=== PATIENT | female | born 1955 | race Caucasian/White ===

== ENCOUNTER 2019-06-05 | Emergency (ER) | payer BC ==
[2019-06-05 23:14] LABS: HEMATOCRIT 42.3 % (37.0-47.0); HEMOGLOBIN 13.8 g/dl (12.0-16.0); IMMATURE GRANULOCYTES 0.2 % (0.0-5.0); MEAN CELL VOLUME 91.6 fL CALC (80.0-100.0); MEAN CORPUSCULAR HGB 29.9 pG CALC (26.0-32.0); MEAN CORPUSCULAR HGB CONC 32.6 g/L CALC (32.0-36.0); NEUT# 1.87 thou/uL (2.00-7.15); RED BLOOD COUNT 4.62 mill/uL (4.20-5.60); RED CELL DISTRI WIDTH 12.5 % (11.5-15.5)
[2019-06-05 23:26] LABS: ALBUMIN 4.9 g/dL (3.2-5.0); ALKALINE PHOSPHATASE 64 u/l (38-126); ANION GAP 13 (6-22 (CALC)); BILIRUBIN, TOTAL 0.4 mg/dL (0.0-1.4); BUN 19 mg/dL (8-23); BUN/CREATININE RATIO 33 (12-20 (CALC)); CARBON DIOXIDE 27 mmol/l (22-30); CHLORIDE 103 mmol/l (95-108); CREATININE 0.6 mg/dL (0.5-1.0); GFR > 60 ML/MIN (>=60 (CALC)); GFR FOR AFR.AMER. > 60 ML/MIN (>=60 (CALC)); POTASSIUM 4.4 mmol/l (3.5-5.1); SGOT/AST 35 u/l (9-36); SODIUM 139 mmol/l (137-146)
[2019-06-05] MEDS ORDERED: FLUDROCORTISON0.1 MG PO (23:35)
[2019-06-05] MEDS ORDERED: PROZAC20 MG PO (23:35)
[2019-06-05] MEDS ORDERED: PROVIGIL200 MG PO (23:36)
[2019-06-05] MEDS ORDERED: CEPHALEXIN500 MG PO (23:45)
[2019-06-05] MEDS ORDERED: ROBITUSSIN AC10 ML PO (23:45)
== END 2019-06-06 00:40 | disposition home or self-care (01) | DRG 153 ==
PROVIDERS: Emergency Medicine
DX: J06.9 Acute upper respiratory infection, unspecified (principal)

== ENCOUNTER 2019-06-22 | Emergency (ER) | payer BC ==
[~2019-06-22] MED LIST: CEPHALEXIN500 MG PO; FLUDROCORTISON0.1 MG PO; PROVIGIL200 MG PO; PROZAC20 MG PO; ROBITUSSIN AC10 ML PO
[2019-06-22] MEDS ORDERED: TESSALON PER100 MG PO (16:59)
[2019-06-22] MEDS ORDERED: XOPENEX CO1.25 MG/0. NEB (16:59)
[2019-06-22] MEDS ORDERED: AZITHROMYCIN500 MG PO (17:03)
== END 2019-06-22 17:31 | disposition home or self-care (01) | DRG 204 ==
DX: R05 Cough (principal)

== ENCOUNTER 2019-06-23 | Emergency (ER) | payer BC ==
[~2019-06-23] MED LIST changes: +AZITHROMYCIN500 MG PO; +TESSALON PER100 MG PO; +XOPENEX CO1.25 MG/0. NEB
[2019-06-23 12:19] LABS: IMMATURE GRANULOCYTES 0.2 % (0.0-5.0); MEAN CELL VOLUME 90.5 fL CALC (80.0-100.0); MEAN CORPUSCULAR HGB 30.2 pG CALC (26.0-32.0); MEAN CORPUSCULAR HGB CONC 33.3 g/L CALC (32.0-36.0); NEUT# 2.98 thou/uL (2.00-7.15); RED BLOOD COUNT 4.31 mill/uL (4.20-5.60); RED CELL DISTRI WIDTH 12.7 % (11.5-15.5)
[2019-06-23 12:44] LABS: ALBUMIN 4.6 g/dL (3.2-5.0); ALKALINE PHOSPHATASE 68 u/l (38-126); ANION GAP 17 (6-22 (CALC)); BILIRUBIN, TOTAL 0.5 mg/dL (0.0-1.4); BUN 17 mg/dL (8-23); BUN/CREATININE RATIO 29 (12-20 (CALC)); CARBON DIOXIDE 21 mmol/l (22-30); CHLORIDE 105 mmol/l (95-108); CREATININE 0.6 mg/dL (0.5-1.0); GFR > 60 ML/MIN (>=60 (CALC)); GFR FOR AFR.AMER. > 60 ML/MIN (>=60 (CALC)); POTASSIUM 3.8 mmol/l (3.5-5.1); SGOT/AST 38 u/l (9-36); SODIUM 139 mmol/l (137-146); TOTAL PROTEIN 7.3 g/dL (6.3-8.2)
== END 2019-06-23 14:29 | disposition home or self-care (01) | DRG 312 ==
PROVIDERS: Family Medicine
DX: R55 Syncope and collapse (principal)